=== PATIENT | female | born 1980 | race Caucasian/White ===

== ENCOUNTER → 2021-08-13 | Outpatient (CLI) | payer OTHER ==
[2021-08-13 19:49] LABS: Albumin, Blood 3.6 g/dL (3.4-5.0); Bilirubin, Total 0.7 mg/dL (0.1-1.0); Bun/Creatinine Ratio 19.1 (12.0-20.0); Calcium, Blood 8.8 mg/dL (8.5-10.1); Creatinine, Blood 0.73 mg/dL (0.40-1.00); Globulin, Blood 3.5 g/dL (2.2-4.0); Potassium, Blood 3.8 mmol/L (3.5-5.5); Total Protein, Blood 7.1 g/dL (6.4-8.2)
== END ==
LOC: LAB SHORT 11:16
PROVIDERS: Physician Assistant
DX: Z13.6 Encounter for screening for cardiovascular disorders (principal); F41.8 Other specified anxiety disorders
CPT/HCPCS: 80053; 82306

== ENCOUNTER → 2024-10-03 | Outpatient (CLI) | payer OTHER ==
[2024-10-07 06:02] LABS: OVA AND PARASITE,FECAL INTERP Negative (Negative)
[2024-10-08 20:22] LABS: OVA AND PARASITE,FECAL INTERP Negative (Negative)
== END | disposition home or self-care (01) ==
LOC: LAB 07:35 → LAB SHORT 07:35 → LAB FUT 09-20 09:55
PROVIDERS: Nurse Practitioner Family
DX: L29.0 Pruritus ani (principal); R19.4 Change in bowel habit
CPT/HCPCS: 87177; 87209

== ENCOUNTER → 2024-10-10 | Outpatient (CLI) | payer OTHER ==
[2024-10-17 16:47] LABS: OVA AND PARASITE,FECAL INTERP Negative (Negative)
== END ==
LOC: LAB 07:45 → LAB SHORT 07:45
PROVIDERS: Nurse Practitioner Family
DX: R19.4 Change in bowel habit (principal); L29.0 Pruritus ani
CPT/HCPCS: 87177; 87209